=== PATIENT | male | born 1995 | race Caucasian/White ===

== ENCOUNTER 2016-11-20 17:21 | Emergency (ER) | payer SELFPAY ==
--- NOTE | 2016-11-20 18:05 | ER Document Report ---
ED Medical Screen (RME) - General Chief Complaint: Near Syncope Stated Complaint: WEAKNESS/DIZZINESS Notes: Patient says he's had a cough and a lot of mucus in his chest since . Has been experiencing body aches, dizziness, weakness, feeling like he might pass out. No vomiting, but has had some diarrhea. Had a fever for one day. No UTI symptoms. Distant history of asthma. Cigarette smoker TRAVEL OUTSIDE OF THE [place] IN LAST 30 DAYS: No - Related Data Allergies/Adverse Reactions: cinnamon Allergy (Verified 07/06/16 21:14) Past Medical History Renal/ Medical History: Denies: Hx Peritoneal Dialysis Skin Medical History: Reports Hx MRSA Physical Exam - Vital signs Vitals: Temp Pulse Resp BP Pulse Ox 98.7 F 82 17 121/60 98 11/20/16 17:22 11/20/16 17:22 11/20/16 17:22 11/20/16 17:22 11/20/16 17:22 Course - Vital Signs Vital signs: Temp Pulse Resp BP Pulse Ox 98.7 F 82 17 121/60 98 11/20/16 17:22 11/20/16 17:22 11/20/16 17:22 11/20/16 17:22 11/20/16 17:22
--- NOTE | 2016-11-20 19:11 | ER Document Report ---
HPI - HPI Patient complains to provider of: feels bad cough congestion Onset: Other - Onset/Duration: Gradual Quality of pain: Achy Pain Level: 5 Context: 21-year-old woke her male with generalized body aches, congestion, cough was exposed to influenza and colds at work. He has been moving and did not rest this weekend he does not feel well he wants medicine to make him better. No nausea vomiting or diarrhea. No chest pain or shortness of breath. Associated Symptoms: None Exacerbated by: Denies Relieved by: Denies Similar symptoms previously: No Recently seen / treated by doctor: No - ROS ROS below otherwise negative: Yes Systems Reviewed and Negative: Yes All other systems reviewed and negative - DERM Skin Color: Normal Past Medical History - General Information source: Patient - Social History Smoking Status: Current Every Day Smoker Chew tobacco use (# tins/day): No Frequency of alcohol use: 1 beer almost every day Family History: Reviewed & Not Pertinent Patient has suicidal ideation: No Patient has homicidal ideation: No Renal/ Medical History: Denies: Hx Peritoneal Dialysis Malignancy Medical History: Reports Hx Bone Cancer Skin Medical History: Reports Hx MRSA Past Surgical History: Reports: Hx Orthopedic Surgery - Bone 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 - Immunizations Hx Diphtheria, Pertussis, Tetanus Vaccination: - unknown Vertical Provider Document - CONSTITUTIONAL Agree With Documented VS: Yes Exam Limitations: No Limitations - INFECTION CONTROL TRAVEL OUTSIDE OF THE [place] IN LAST 30 DAYS: No - HEENT HEENT: Normal ENT Exam - NECK Neck: Supple. negative: Lymphadenopathy-Left, Lymphadenopathy-Right - RESPIRATORY Respiratory: Breath Sounds Normal, No Respiratory Distress O2 Sat by Pulse Oximetry: 98 - CARDIOVASCULAR Cardiovascular: Regular Rate, Regular Rhythm - GI/ABDOMEN Gastrointestinal: Abdomen Soft, Abdomen Non-Tender, No Organomegaly - BACK Back: Normal Inspection - MUSCULOSKELETAL/EXTREMETIES Musculoskeletal/Extremeties: MAEW, FROM, Non-Tender - NEURO Level of Consciousness: Awake, Alert, Appropriate Motor/Sensory: No Motor Deficit, No Sensory Deficit - DERM Integumentary: Warm, Dry, No Rash Course - Vital Signs Vital signs: Temp Pulse Resp BP Pulse Ox 98.7 F 82 17 121/60 98 11/20/16 17:22 11/20/16 17:22 11/20/16 17:22 11/20/16 17:22 11/20/16 17:22 Discharge - Discharge Clinical Impression: upper respiratory infection Condition: Good Disposition: HOME, SELF-CARE Instructions: Upper Respiratory Illness ([facility]), Arthralgia ([facility]), Myalagia ( Muscle Pain) ([facility]), Acetaminophen, Use of Ngpp-Zbf-Efisqck Ibuprofen ([facility]) Additional Instructions: rest fluids to er if worse Quit smoking Please complete the patient satisfaction survey if you get one, and return it.. If you do not receive a survey, then you can go to the [facility] website, [email or web address] and place your comments about your very good care. Thank you very much. It was a pleasure being your medical provider today. Prescriptions: Albuterol Sulfate [Proair HFA Inhalation Aerosol 8.5 gm MDI] 2 puff IH Q3HP PRN #1 [email or web address] PRN Reason: Forms: Return to Work
[2016-11-20] MEDS ORDERED: ALBUTEROL SULFATE HFA (90 MCG/PUFF) 8 GM MDI (1 MDI/ER DISP) IH PRN (19:23)
[2016-11-20 22:22] VITALS: BP 120/63
== END 2016-11-20 20:12 | disposition home or self-care (01) ==
LOC: ER 17:21
DX: J06.9 Acute upper respiratory infection, unspecified (principal); R05 Cough; R52 Pain, unspecified; Z20.828 Contact with and (suspected) exposure to other viral communicable diseases; F17.210 Nicotine dependence, cigarettes, uncomplicated; Z86.14 Personal history of Methicillin resistant Staphylococcus aureus infection; Z85.830 Personal history of malignant neoplasm of bone
CPT/HCPCS: 71020; 82962; 99283

== ENCOUNTER 2016-12-13 20:25 | Emergency (ER) | payer OTHER ==
[2016-12-13] MEDS ORDERED: NORMAL SALINE 1000 ML 1,000 ML IV ONE (21:20)
[2016-12-13] MEDS ORDERED: ONDANSETRON HCL INJ/PF 4 MG/2 ML SDV IV ONE (21:20)
--- NOTE | 2016-12-13 21:48 | ER Document Report ---
ED GI/ - General Mode of Arrival: Ambulatory Information source: Patient TRAVEL OUTSIDE OF THE [place] IN LAST 30 DAYS: No - HPI Patient complains to provider of: Abdominal pain, Diarrhea, Vomiting Onset: Yesterday Location: Other - generalized abdominal pain Associated symptoms: Other - see notes above - General Chief Complaint: Nausea/Vomiting Stated Complaint: VOMITING Time Seen by Provider: 12/13/16 21:42 Notes: 21 year old male presents to the ED complaining of sharp intermittent epigastric abdominal pain, vomiting, and diarrhea that started yesterday. Patient reports that he has been unable to keep fluids down. Patient states that his last episode of diarrhea was last night, and reports that they "aren't as bad today." Patient also refuses to have a full work up performed and requests to take something by mouth and go home. (CHARMAINE HARDY) - Related Data Allergies/Adverse Reactions: cinnamon Allergy (Verified 11/20/16 22:23) Past Medical History - General Information source: Patient - Social History Smoking Status: Current Every Day Smoker Frequency of alcohol use: Occasional Family History: Reviewed & Not Pertinent Malignancy Medical History: Reports Hx Bone Cancer Skin Medical History: Reports Hx MRSA Past Surgical History: Reports: Hx Orthopedic Surgery - Bone 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 - Immunizations Hx Diphtheria, Pertussis, Tetanus Vaccination: - unknown Review of Systems - Review of Systems Constitutional: No symptoms reported EENT: No symptoms reported Cardiovascular: No symptoms reported Respiratory: No symptoms reported Gastrointestinal: See HPI, Abdominal pain - generalized, Diarrhea, Vomiting Genitourinary: No symptoms reported Male Genitourinary: No symptoms reported Musculoskeletal: No symptoms reported Skin: No symptoms reported Hematologic/Lymphatic: No symptoms reported Neurological/Psychological: No symptoms reported -: Yes All other systems reviewed and negative Physical Exam - General General appearance: Appears well - Patient does not look ill., Alert In distress: None - HEENT Head: Normocephalic, Atraumatic Eyes: Normal Extraocular movements intact: Yes Pupils: PERRL - Respiratory Respiratory status: No respiratory distress Breath sounds: Normal - Cardiovascular Rhythm: Regular Heart sounds: Normal auscultation - Abdominal Inspection: Normal Distension: No distension - Resonate to percussion Bowel sounds: Hypoactive - Mildly diminished Tenderness: Nontender - Back Back: Normal - Extremities General upper extremity: Normal inspection, Normal ROM General lower extremity: Normal inspection, Normal ROM, Normal weight bearing - Neurological Neuro grossly intact: Yes - Psychological Associated symptoms: Normal affect, Normal mood - Skin Skin Temperature: Warm Skin Moisture: Dry Skin Color: Normal - Vital signs Vitals: Temp Pulse Resp BP Pulse Ox 97.8 F 87 16 119/69 100 12/13/16 20:49 12/13/16 20:49 12/13/16 20:49 12/13/16 20:49 12/13/16 20:49 Discharge - Discharge Clinical Impression: Nausea, vomiting and diarrhea, Abdominal cramps Additional Instructions: Gastroenteritis: You most likely have gastroenteritis. This is an irritation of the stomach and intestinal tract. It's usually caused by a virus, but can also be caused by bacteria, toxins that cause food poisoning, or excessive alcohol intake. Symptoms may include fever, painful abdominal cramps, nausea, vomiting , and diarrhea. Start with small amounts (two to six ounces) of clear liquids (soft drinks , herb teas, broth, etc). Try to take fluids frequently even if you are vomiting, to prevent dehydration. When liquids are being consumed successfully , advance to small amounts of bland food (mashed potato, toast) for 6 - 12 hours. Gastroenteritis rarely requires medication. It goes away by itself. Use good handwashing so you don't spread germs. Wash underwear in very hot water. If symptoms are severe, talk to the doctor. Call your physician if blood appears in your vomitus or stool, if vomiting lasts longer than 24 hours, if the abdominal pain worsens or becomes localized to one area, or if you develop high fever. YOU ELECTED NOT TO HAVE A MEDICAL WORK UP OR TREATMENT IN THE ER [facility]. THAT LIMITS OUR ABILITY TO DEFINITIVELY DIAGNOSE OR TREAT YOUR PROBLEM. TAKE THE MEDICATION DISPENSED FOR NAUSEA IF NEEDED. TAKE IMODIUM-AD FOR DIARRHEA AND CRAMPS. DRINK COOL CLEAR LIQUIDS UNTIL THE SYMPTOMS IMPROVE. REST. FOLLOW UP WITH A LOCAL MEDICAL DOCTOR IF NOT IMPROVING. RETURN TO THE EMERGENCY ROOM IF ANY NEW OR WORSENING SYMPTOMS. Prescriptions: Ondansetron HCl [Zofran 4 mg Tablet] 1 - 2 tab PO Q4H PRN #10 tablet PRN Reason: Forms: Return to Work Scribe Attestation: 12/13/16 21:53 I personally performed the services described in the documentation, reviewed and edited the documentation which was dictated to the scribe in my presence, and it accurately records my words and actions. (DEEDEE JORDAN) Scribe Documentation - Scribe Written by Sandy:: Sandy Pollard, 12/13/20169 acting as scribe for :: Shawna
[2016-12-13] MEDS ORDERED: ONDANSETRON ODT 4 MG TAB (6 TAB/DSPK) PO PRN (21:54)
[2016-12-13 22:17] VITALS: BP 132/67
== END 2016-12-13 22:11 | disposition home or self-care (01) ==
LOC: ER 20:25
DX: R11.2 Nausea with vomiting, unspecified (principal); R19.7 Diarrhea, unspecified; R10.84 Generalized abdominal pain; F17.200 Nicotine dependence, unspecified, uncomplicated; Z86.14 Personal history of Methicillin resistant Staphylococcus aureus infection; Z85.830 Personal history of malignant neoplasm of bone
CPT/HCPCS: 99283

== ENCOUNTER 2017-03-26 18:25 | Emergency (ER) | payer OTHER ==
[2017-03-26 18:43] VITALS: BP 128/69
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
== END 2017-03-26 19:38 | disposition home or self-care (01) ==
LOC: ER 18:25
DX: R51 Headache (principal); R42 Dizziness and giddiness
CPT/HCPCS: 99283

== ENCOUNTER 2017-04-08 19:09 | Emergency (ER) | payer OTHER ==
--- NOTE | 2017-04-08 20:07 | RADIOLOGY REPORT (SQ) ---
EXAM DESCRIPTION: HAND RIGHT 3 VIEWS COMPLETED DATE/TIME: 04/08/2017 7:45 pm REASON FOR STUDY: punched a wall, hand pain COMPARISON: None. NUMBER OF VIEWS: Three views right hand. LIMITATIONS: None. FINDINGS: There is no acute or significant bone, joint or soft tissue abnormality. OTHER: No other significant finding. IMPRESSION: NORMAL STUDY. TECHNICAL DOCUMENTATION: JOB ID: [id number]
[2017-04-08] MEDS ORDERED: DIPH/PERTUSS(ACELL)/TETANUS VAC/PF 0.5 ML SYR (>=10YO) IM ONE (20:30)
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
[2017-04-08 20:51] VITALS: BP 96/63
== END 2017-04-08 20:51 | disposition home or self-care (01) ==
LOC: ER 19:09
DX: S60.221A Contusion of right hand, initial encounter (principal); S69.91XA Unspecified injury of right wrist, hand and finger(s), initial encounter; W22.8XXA Striking against or struck by other objects, initial encounter; Z87.891 Personal history of nicotine dependence
CPT/HCPCS: 90471; 90715; 99283